=== PATIENT | male | born 1935 ===

== ENCOUNTER 2022-03-25 09:57 | Emergency (ER) | payer MEDICARE, SELFPAY ==
--- NOTE | 2022-03-25 10:01 | ED.URI ---
HPI - URI/Sore Throat General Chief Complaint: Upper Respiratory Infection Stated Complaint: Sore Throat/Cough Time Seen by Provider: 03/25/22 10:01 Source: patient and RN notes reviewed History of Present Illness HPI Narrative: patient is an 87-year-old male who presents to urgent care with complaints of sneezing, nasal congestion, cough. Patient states that symptoms started 2 days ago. Patient went to Dr. Ahumada and they refused to see him. Patient denies any fevers, nausea, vomiting or body aches. Patient has been using Vicks and NyQuil without much improvement. No other acute complaints. No acute distress noted. Patient aware of the plan of care. Some parts of this dictation were generated by voice recognition software and may contain typographical and/or grammatical inaccuracies. Related Data Home Medications Medication Instructions Recorded Confirmed aspirin 81 mg chewable tablet 81 mg PO DAILY 03/25/22 03/25/22 atorvastatin 20 mg tablet 20 mg PO DAILY 03/25/22 03/25/22 carvedilol 25 mg tablet 25 mg PO BID 03/25/22 03/25/22 ezetimibe 10 mg tablet 10 mg PO DAILY 03/25/22 03/25/22 isosorbide mononitrate 60 mg 60 mg PO DAILY 03/25/22 03/25/22 tablet,extended release 24 hr losartan 25 mg tablet 25 mg PO DAILY 03/25/22 03/25/22 omega 5-puf-jju-fish oil 300 1 cap PO DAILY 03/25/22 03/25/22 mg-1,000 mg capsule,delayed release (Fish Oil) ranolazine 500 mg tablet,extended 500 mg PO BID 03/25/22 03/25/22 release,12 hr tamsulosin 0.4 mg capsule 0.4 mg PO DAILY 03/25/22 03/25/22 Allergies Allergy/AdvReac Type Severity Reaction Status Date / Time No Known Allergies Allergy Verified 03/25/22 10:27 Review of Systems Review of Systems: CONSTITUTIONAL: Denies fever, chills, or sweats. EYES: Denies visual changes, redness, or discharge. ENT: reports rhinorrhea, congestion, sneezing CARDIOVASCULAR: Denies chest pain, palpitations, or edema. RESPIRATORY: Reports of harsh cough with intermittent dyspnea GASTROINTESTINAL: Denies abdominal pain, nausea, vomiting, or diarrhea. GENITOURINARY: Denies dysuria or hematuria. SKIN: Denies rash or itching. MUSCULOSKELETAL: Denies back pain, joint pain, or myalgia. NEUROLOGIC: Denies headache, numbness, or weakness. All other systems reviewed are negative, except as documented in HPI. [facility] Family History Family History (Updated 12/16/17 @ 08:44 by DOCTOR UNKNOWN) Other Family history of arthritis Social History Social History Smoking status: Never smoker Alcohol intake: current Comments At the time of my signature, I reviewed and agree with the nursing past medical, surgical, social, and family history. There is no relevant family history pertinent to the patient complaint. Exam Narrative: GENERAL: This is a well-nourished, well-developed patient, in no apparent distress. HEAD: normocephalic, atraumatic. EYES: PERRL. Sclera clear/white. Vision is grossly intact. EARS: External ears normal, auditory canals clear and without drainage, TMs normal without perforation. Hearing grossly intact. NOSE: External nose normal with no obvious nasal discharge. Moderate erythema nares with clear rhinorrhea THROAT: Mucous membranes moist, posterior pharynx clear. moderate postnasal drainage NECK: Neck supple, non-tender without lymphadenopathy CARDIOVASCULAR: Regular rate and rhythm without murmurs, gallops, or rubs. RESPIRATORY: mild inspiratory wheezing bilateral upper lobes with slight crackles throughout SKIN: warm, intact with no suspicious lesions or rash, good texture and turgor. NEURO: awake, alert, and oriented to person, place and time. There were no obvious focal neurologic abnormalities. EXTREMITIES: No clubbing, cyanosis, or edema. Course Course Level of Care: Express Care Visit Vital Signs Vital signs: Vital Signs Temperature 97.6 F 03/25/22 10:09 Pulse Rate 66 03/25/22 10:09 Respiratory Rate 20 03/25/22 10:09 Blood Pressure 192
[2022-03-25 10:09] VITALS: BP 192/77; PULSE 66; RESP 20; TEMP 36.4; O2SAT 97
[2022-03-25 10:38] VITALS: BP 198/77
== END 2022-03-25 10:38 | disposition home or self-care (01) ==
PROVIDERS: Emergency Provider Nurse Practitioner Family; PCP Family Medicine
DX: J40 Bronchitis, not specified as acute or chronic (principal); I25.2 Old myocardial infarction; Z95.810 Presence of automatic (implantable) cardiac defibrillator
CPT/HCPCS: 99203; G0463